=== PATIENT | male | born 1980 | race Caucasian/White ===

== ENCOUNTER 2018-12-31 12:58 | Emergency (ER) | payer BC ==
[~2018-12-31] VITALS: Ht 175.3 cm; Wt 101.2 kg
[~2018-12-31 12:58] MED LIST: CYCL10 PO; HYDACE5 PO
[2018-12-31] MEDS ORDERED: Lopressor 25 mg25 MG PO (13:17)
[2018-12-31] MEDS ORDERED: Zestril40 MG (13:17)
[2018-12-31] MEDS ORDERED: Percocet 5-3251 EACH PO (13:44)
== END 2018-12-31 13:58 | disposition home or self-care (01) ==
LOC: ER 12:58
DX: N50.811 Right testicular pain (principal); Z79.899 Other long term (current) drug therapy; I10 Essential (primary) hypertension; F17.210 Nicotine dependence, cigarettes, uncomplicated
CPT/HCPCS: 99283

== ENCOUNTER 2025-01-14 06:58 | Emergency (ER) | payer BC ==
[~2025-01-14] VITALS: Ht 175.3 cm; Wt 102.1 kg
[~2025-01-14 06:58] MED LIST changes: +Lopressor 25 mg25 MG PO; +Percocet 5-3251 EACH PO; +Zestril40 MG
[2025-01-14] MEDS ORDERED: DEPO-TESTO200 MG/18 IM (07:41)
[2025-01-14] MEDS ORDERED: CYCL10 PO (07:43)
[2025-01-14] MEDS ORDERED: ROSUVASTATIN CAL5 MG PO (07:43)
[2025-01-14] MEDS ORDERED: METFORMIN HCL500 M3 PO (07:43)
[2025-01-14] MEDS ORDERED: Ketorolac Tromethamine 30mg Vial IV ONE (08:05)
[2025-01-14 08:07] LABS: Source, Urine Clean Catch
[2025-01-14 08:12] LABS: BASOPHILS PERCENT AUTO 1 % (0-2); EOSINOPHILS ABSOLUTE AUTO 0.01 K/mm3 (0.00-0.68); EOSINOPHILS PERCENT AUTO 0 % (0-6); Hemoglobin 17.8 g/dL (13.5-17.5); IMMATURE GRAN ABSOLUTE AUTO 0.07 K/mm3 (0.00-0.10); IMMATURE GRAN PERCENT AUTO 0 % (0-1); LYMPHOCYTES ABSOLUTE AUTO 1.88 K/mm3 (0.84-5.20); LYMPHOCYTES PERCENT AUTO 9 % (21-46); MONOCYTES ABSOLUTE AUTO 1.58 K/mm3 (0.16-1.47); MONOCYTES PERCENT AUTO 7 % (4-13); Mean Corpuscular HGB Conc 34.9 g/dL (31.5-36.5); Mean Corpuscular Volume 89 fL (80-100); Mean Platelet Volume 10.8 fL (9.1-12.4); NEUTROPHILS ABSOLUTE AUTO 17.92 K/mm3 (1.96-9.15); NEUTROPHILS PERCENT AUTO 83 % (41-73); Platelet Count 246 K/mm3 (150-400); RDW Coefficient Variation 13.3 % (11.7-14.2); RDW Standard Deviation 43.6 fL (35.1-46.3); Red Blood Cell Count 5.74 M/mm3 (4.30-5.90); White Blood Cell Count 21.56 K/mm3 (4.00-11.30)
[2025-01-14 08:12] LABS: Appearance, Urine Turbid (Clear); Bilirubin, Urine Neg (Neg); Blood, Urine 5+ (Neg); Color, Urine Red (P-Yellow); Glucose Qualitative, Urine 3+ (Neg); Ketones, Urine 1+ (Neg); Leukocyte Esterase, Urine 2+ (Neg); Nitrite, Urine Neg (Neg); Protein, Urine 3+ (Neg); Specific Gravity, Urine 1.015 (1.003-1.022); Urobilinogen, Urine 1+ (Normal)
[2025-01-14 08:19] LABS: Red Blood Cells, Urine 50-100 /hpf (0-2); Squamous Epithelial Cells Not Seen /hpf (Few)
[2025-01-14 08:20] LABS: Bacteria Mod /hpf
[2025-01-14 08:28] LABS: Albumin, Blood 4.5 g/dL (3.4-5.0); Albumin/Globulin Ratio 1.4 (0.8-1.8); Bilirubin, Total 0.5 mg/dL (0.1-1.0); Bun/Creatinine Ratio 11.1 (12.0-20.0); Calcium, Blood 9.2 mg/dL (8.5-10.1); Creatinine, Blood 1.08 mg/dL (0.60-1.20); Globulin, Blood 3.3 g/dL (2.2-4.0); Potassium, Blood 4.3 mmol/L (3.5-5.5); Total Protein, Blood 7.8 g/dL (6.4-8.2)
[2025-01-14] MEDS ORDERED: NS 1,000 ML IV SCH (09:40)
[2025-01-14] MEDS ORDERED: Morphine Sulfate 4 MG/1 ML Injection IV ONE (10:15)
[2025-01-14] MEDS ORDERED: CefTRIAXone Sodium 1,000 MG in NS 50 ML IV ONE (10:15)
[2025-01-14] MEDS ORDERED: TAMS.4ER PO (10:21)
[2025-01-14] MEDS ORDERED: CEPH500 PO (10:21)
[2025-01-14 10:45] VITALS: BP 152/81
[2025-01-14] MEDS ORDERED: Morphine Sulfat15 MG PO (10:58)
[2025-01-14] MEDS ORDERED: ONDA4ODT MM (11:01)
== END 2025-01-14 11:17 | disposition home or self-care (01) ==
LOC: ER 06:58
PROVIDERS: Student in an Organized Health Care Education/Training Program
DX: N13.2 Hydronephrosis with renal and ureteral calculous obstruction (principal); N17.9 Acute kidney failure, unspecified; E86.0 Dehydration; R82.71 Bacteriuria; I10 Essential (primary) hypertension; E11.9 Type 2 diabetes mellitus without complications; F17.210 Nicotine dependence, cigarettes, uncomplicated; Z79.899 Other long term (current) drug therapy
CPT/HCPCS: 74177; 80053; 81001; 83690; 85025; 87086; 96361; 96365-59; 96375; 99284-25; J0696; J1885; J2270; J7030; Q9967